=== PATIENT | female | born 1990 | race African-American/Black ===

== ENCOUNTER 2016-10-20 23:59 | Observation (INO) | payer MEDICAID ==
[~2016-10-20] VITALS: Ht 167.6 cm; Wt 79.4 kg
[2016-10-21] MEDS ORDERED: DEXT 5%/LACTATED RINGERS 1,000 ML IV SCH (00:52)
[2016-10-21 02:06] LABS: CLARITY URINE CLEAR (CLEAR); COLOR URINE YELLOW (YELLOW); GLUCOSE URINE NEGATIVE (NEGATIVE); KETONES URINE NEGATIVE (NEGATIVE); LEUKOCYTE ESTERASE URINE 3+ (NEGATIVE); NITRITE URINE NEGATIVE (NEGATIVE); OCCULT BLOOD URINE NEGATIVE (NEGATIVE); PH URINE 6.5 (4.5-8.0); PROTEIN URINE NEGATIVE (NEGATIVE); SPECIFIC GRAVITY URINE 1.021 (1.005-1.030)
[2016-10-21 02:31] LABS: CALCIUM OXALATE CRYSTALS URINE 1+ /lpf; RBC URINE 0-2 /hpf (0-2)
[2016-10-21 02:32] LABS: BACTERIA URINE 1+; WBC URINE 25-50 /hpf (0-2)
[2016-10-21 02:34] LABS: SQUAMOUS EPITHELIAL CELL URINE 2+ /lpf (RARE/1+)
[2016-10-21] MEDS ORDERED: CEFAZOLIN 2,000 MG in DEXT 5% WATER 100 ML IV ONE (02:50)
[2016-10-21] MEDS ORDERED: PREN-55 PO (03:15)
== END 2016-10-21 04:15 | disposition home or self-care (01) ==
LOC: L&D 23:59 → UNDODISOB 10-21 04:15
PROVIDERS: ADMIT Obstetrics & Gynecology; ATTEND Obstetrics & Gynecology
DX: O26.893 Other specified pregnancy related conditions, third trimester (principal); R10.2 Pelvic and perineal pain; Z3A.28 28 weeks gestation of pregnancy
CPT/HCPCS: 81001; 96365; 99281; G0378; J0690; 96360; 96361; J7060

== ENCOUNTER 2021-11-25 16:13 | Emergency (ER) | payer MEDICAID, OTHER ==
[~2021-11-25] VITALS: Ht 167.6 cm; Wt 73.0 kg
[~2021-11-25 16:13] MED LIST: PREN-55 PO
[2021-11-25] MEDS ORDERED: CLIN300C12 MT (20:33)
[2021-11-25] MEDS ORDERED: HYDR-4001 MT (20:33)
[2021-11-25 20:54] VITALS: BP 130/88
== END 2021-11-25 20:56 | disposition home or self-care (01) ==
LOC: ER 16:13
DX: R68.84 Jaw pain (principal); J45.909 Unspecified asthma, uncomplicated; D64.9 Anemia, unspecified
CPT/HCPCS: 70486; 99284

== ENCOUNTER 2022-06-13 08:37 | Emergency (ER) | payer OTHER ==
[~2022-06-13] VITALS: Ht 167.6 cm; Wt 73.0 kg
[~2022-06-13 08:37] MED LIST changes: +CLIN-194 MT; +HYDR-4001 MT
[2022-06-13 08:46] VITALS: BP 107/74
== END 2022-06-13 10:47 | disposition home or self-care (01) ==
LOC: ER 08:49
DX: J06.9 Acute upper respiratory infection, unspecified (principal); H93.8X9 Other specified disorders of ear, unspecified ear; J45.909 Unspecified asthma, uncomplicated
CPT/HCPCS: 81025; 99282